=== PATIENT | female | born 2000 | race Two or more races ===

== ENCOUNTER 2024-09-05 10:20 | Emergency (ER) | payer OTHER ==
[~2024-09-05] VITALS: Ht 170.2 cm; Wt 86.2 kg
[2024-09-05] MEDS ORDERED: LEXAPRO5 MG (10:29)
[2024-09-05] MEDS ORDERED: ACETAMINOPHEN 500 MG GEL..CAP PO ONE (14:45)
[2024-09-05] MEDS ORDERED: CETIRIZINE HCL 5 MG/5 ML ML PO ONE (14:45)
[2024-09-05] MEDS ORDERED: GUAIFENESIN/DEXTROMETHORPHAN 10ML BLIST.PACK PO ONE (14:45)
[2024-09-05 15:54] LABS: HEMATOCRIT 40.1 % (36.0-45.00); HEMOGLOBIN 13.4 g/dL (12.0-15.00); MEAN CELL VOLUME 96.4 fL (80.00-100.00); MEAN CORPUSCULAR HEMOGLOBIN 32.3 pg (27.00-32.0); MEAN CORPUSCULAR HGB CONC 33.5 g/dl (32.0-36.0); PLATELET COUNT 181 K/uL (150-450); RED BLOOD COUNT 4.16 M/uL (4.00-6.00); RED CELL DISTRIBUTION WIDTH 12.9 % (11.5-14.5)
[2024-09-05] MEDS ORDERED: ZITHROMAX TRI-500 MG PO (17:33)
[2024-09-05] MEDS ORDERED: QC TUSSIN DM L118 ML PO (17:33)
[2024-09-05] MEDS ORDERED: ZYRTEC10 MG PO (17:33)
== END 2024-09-05 18:17 | disposition home or self-care (01) ==
LOC: ER 10:22
PROVIDERS: Nurse Practitioner Family
DX: J00 Acute nasopharyngitis [common cold] (principal); F41.8 Other specified anxiety disorders; Z20.822 Contact with and (suspected) exposure to COVID-19

== ENCOUNTER 2024-11-02 12:02 | Emergency (ER) | payer OTHER ==
[~2024-11-02] VITALS: Ht 170.2 cm; Wt 90.7 kg
[~2024-11-02 12:02] MED LIST: LEXAPRO5 MG; QC TUSSIN DM L118 ML PO; ZITHROMAX TRI-500 MG PO; ZYRTEC10 MG PO
[2024-11-02] MEDS ORDERED: DEPAKOTE ER500 MG PO (13:03)
[2024-11-02] MEDS ORDERED: JUNEL FE 1 MG-1 EACH PO (13:03)
[2024-11-02] MEDS ORDERED: LEXAPRO5 MG PO (13:04)
[2024-11-02] MEDS ORDERED: FAMOTIDINE/PF 20 MG in 0.9 % SODIUM CHLORIDE 8 ML IV PUSH STA (13:08)
[2024-11-02] MEDS ORDERED: ONDANSETRON HCL 2 MG/ML VIAL IV ONE (13:15)
[2024-11-02] MEDS ORDERED: 0.9 % SODIUM CHLORIDE 1,000 ML IV ONE (13:15)
[2024-11-02] MEDS ORDERED: FAMOTIDINE/PF 20 MG/2 ML VIAL ONE ×2 (13:40→13:42)
[2024-11-02] MEDS ORDERED: ONDANSETRON HCL 2 MG/ML VIAL ONE (13:40)
[2024-11-02 14:30] LABS: HEMATOCRIT 41.7 % (36.0-45.00); MEAN CELL VOLUME 95.2 fL (80.00-100.00); MEAN CORPUSCULAR HGB CONC 33.6 g/dl (32.0-36.0); PLATELET COUNT 220 K/uL (150-450); RED BLOOD COUNT 4.38 M/uL (4.00-6.00)
[2024-11-02 14:57] LABS: ALBUMIN 3.8 gm/dL (3.4-5.0); BILIRUBIN TOTAL 0.51 mg/dL (0.3-1.2); CALCIUM 9.3 mg/dL (8.5-10.1); CREATININE SERUM 0.75 mg/dL (0.55-1.02); GFR 93.41; GLOBULINA 3.8 G/DL (2.4-3.5); POTASSIUM 4.32 mEq/L (3.5-5.1); TOTAL PROTEIN 7.6 gm/dL (6.4-8.2)
[2024-11-02] MEDS ORDERED: PEPCID AC20 MG PO (15:40)
[2024-11-02] MEDS ORDERED: OSEL75CA PO (15:40)
[2024-11-02] MEDS ORDERED: ZOFRAN8 MG PO (15:40)
[2024-11-02] MEDS ORDERED: TUSNEL LIQUID178 ML PO (15:40)
== END 2024-11-02 15:45 | disposition home or self-care (01) ==
LOC: ER 12:04
PROVIDERS: General Practice
DX: J10.1 Influenza due to other identified influenza virus with other respiratory manifestations (principal); R42 Dizziness and giddiness; Z20.822 Contact with and (suspected) exposure to COVID-19

== ENCOUNTER → 2025-06-25 | Emergency (ER) | payer OTHER ==
[~2025-06-25] VITALS: Ht 172.7 cm; Wt 86.2 kg
[~2025-06-25] MED LIST changes: +DEPAKOTE ER500 MG PO; +JUNEL FE 1 MG-1 EACH PO; +LEXAPRO5 MG PO; +OSEL75CA PO; +PEPCID AC20 MG PO; +TUSNEL LIQUID178 ML PO; +ZOFRAN8 MG PO
== END | disposition left against medical advice (07) ==
LOC: ER 22:54
DX: Z53.21 Procedure and treatment not carried out due to patient leaving prior to being seen by health care provider (principal)